=== PATIENT | male | born 1995 | race Caucasian/White ===

== ENCOUNTER 2019-08-22 13:04 | Emergency (ER) | payer OTHER ==
[2019-08-22] MEDS ORDERED: TETANUS & DIPHTHERIA TOX,ADULT 0.5 ML VIAL ONE (13:22)
--- NOTE | 2019-08-22 14:11 | ER ---
Nurse's Notes [facility] Name: Sanket Zuñiga Age: 24 yrs Sex: Male : 1995 Arrival Date: 08/22/2019 Time: 13:05 Bed 28 Private MD: Diagnosis: Puncture wound without foreign body of foot Presentation: 08/22 13:09 Presenting complaint: Patient states: i was barefoot trying to put a neighbors dog in tw2 and stepped on a daniel nail, i was barefoot. Transition of care: patient was not received from another setting of care. Onset of symptoms was August 22, 2019. Risk Assessment: Do you want to hurt yourself or someone else? Patient reports no desire to harm self or others. Initial Sepsis Screen: Does the patient meet any 2 criteria? No. Patient's initial sepsis screen is negative. Does the patient have a suspected source of infection? No. Patient's initial sepsis screen is negative. Care prior to arrival: None. 13:09 Method Of Arrival: Ambulatory tw2 13:09 Acuity: ROCAEL 4 tw2 Triage Assessment: 13:11 General: Appears in no apparent distress. Behavior is calm, cooperative, appropriate tw2 for age. Pain: Complains of pain in right foot. Musculoskeletal: Range of motion: intact in all extremities. Injury Description: Puncture sustained to right foot was sustained 1-2 hours ago. Historical: - Allergies: 13:10 No Known Allergies; tw2 - Home Meds: 13:10 None [Active]; tw2 - PMHx: 13:10 None; tw2 - PSHx: 13:10 None; tw2 - Immunization history:: Last tetanus immunization: > 10 years ago. - Social history:: Smoking status: . - Ebola Screening: : Patient denies travel to an Ebola-affected area in the 21 days before illness onset. Screenin:56 Abuse screen: Denies threats or abuse. Denies injuries from another. Nutritional mg2 screening: No deficits noted. Tuberculosis screening: No symptoms or risk factors identified. Fall Risk None identified. Assessment: 13:57 General: Appears in no apparent distress. comfortable, Behavior is calm, cooperative. mg2 Pain: Complains of pain in right foot. Neuro: Level of Consciousness is awake, alert, obeys commands, Oriented to person, place, time, situation. Cardiovascular: Capillary refill < 3 seconds Patient's skin is warm and dry. Respiratory: Airway is patent Respiratory effort is even, unlabored, Respiratory pattern is regular, symmetrical. GI: No signs and/or symptoms were reported involving the gastrointestinal system. : No signs and/or symptoms were reported regarding the genitourinary system. EENT: No signs and/or symptoms were reported regarding the EENT system. Derm: Wound noted right foot Wound is small punctured wound, no active bleeding. Musculoskeletal: Circulation, motion, and sensation intact. Capillary refill < 3 seconds. 14:10 Reassessment: Patient appears in no apparent distress at this time. Patient and/or mg2 family updated on plan of care and expected duration. Pain level reassessed. Vital Signs: 13:11 BP 125 / 75; Pulse 74; Resp 18; Temp 98(TE); Pulse Ox 100% on R/A; Weight 79.38 kg; tw2 Height 6 ft. 1 in. (185.42 cm); Pain 4/10; 14:00 BP 120 / 71; Pulse 71; Resp 18; Temp 98; Pulse Ox 100% on R/A; mg2 13:11 Body Mass Index 23.09 (79.38 kg, 185.42 cm) tw2 ED Course: 13:05 Patient arrived in ED. am2 13:10 Triage completed. tw2 13:10 Kadie Griffiths [facility]-C [facility]. kb 13:11 Yue Coronado MD is Attending Physician. kb 13:11 Arm band placed on. tw2 13:14 Monroe Shukla, RN is Primary Nurse. mg2 13:57 Patient has correct armband on for positive identification. mg2 13:59 No provider procedures requiring assistance completed. Patient did not have IV access mg2 during this emergency room visit. Administered Medications: 13:38 Drug: Tetanus-Diphtheria Toxoid Adult 0.5 ml {Artificial Insemination Technician: [employer]. Exp: mg2 02/09/2021. Lot #: [id number]. } Route: IM; Site: left deltoid; 14:00 Follow up: Response: No adverse reaction mg2 Outcome: 14:09 Discharge ordered by . kb 14:28 Discharged to home ambulatory, with family. mg2 14:28 Condition: stable 14:28 Discharge instructions given to patient, family, Instructed on discharge instructions, follow up and referral plans. Demonstrated understanding of instructions, follow-up care, wound care. 14:29 Patient left the ED. mg2 Signatures: Kadie Griffiths, COOKIE-C AFTER SCHOOL PROGRAM ASSISTANT-CkAnali Jones, RN RN tw2 Yvrose Boo am2 Monroe Shukla RN RN mg2
--- NOTE | 2019-08-22 14:11 | EDPHYS ---
Physician Documentation [facility] Name: Sanket Zuñiga Age: 24 yrs Sex: Male : 1995 Arrival Date: 08/22/2019 Time: 13:05 Bed 28 Private MD: ED Physician Yue Coronado HPI: 08/22 13:23 This 24 yrs old Male presents to ER via Ambulatory with complaints of stepped kb on nail, Foot Injury. 13:23 The patient presents with a puncture wound, from a nail. The complaints affect the kb right foot. Context: The problem was sustained at a neighbor's house, outdoors, resulted from the patient stepping on a nail, the patient can fully bear weight, the patient is able to ambulate. Onset: The symptoms/episode began/occurred just prior to arrival. Modifying factors: The symptoms are alleviated by nothing, the symptoms are aggravated by nothing. Associated signs and symptoms: The patient has no apparent associated signs or symptoms. Severity of symptoms: At their worst the symptoms were moderate, in the emergency department the symptoms are unchanged. The patient has not experienced similar symptoms in the past. The patient has not recently seen a physician. Historical: - Allergies: 13:10 No Known Allergies; tw2 - Home Meds: 13:10 None [Active]; tw2 - PMHx: 13:10 None; tw2 - PSHx: 13:10 None; tw2 - Immunization history:: Last tetanus immunization: > 10 years ago. - Social history:: Smoking status: . - Ebola Screening: : Patient denies travel to an Ebola-affected area in the 21 days before illness onset. ROS: 13:22 Constitutional: Negative for fever, chills, and weight loss, Cardiovascular: Negative kb for chest pain, palpitations, and edema, Respiratory: Negative for shortness of breath, cough, wheezing, and pleuritic chest pain, Abdomen/GI: Negative for abdominal pain, nausea, vomiting, diarrhea, and constipation, Back: Negative for injury and pain, MS/Extremity: Negative for injury and deformity, Neuro: Negative for headache, weakness, numbness, tingling, and seizure. 13:22 Skin: Positive for puncture, of the ball of right foot, stepped on nail. Exam: 13:21 Constitutional: This is a well developed, well nourished patient who is awake, alert, kb and in no acute distress. Head/Face: Normocephalic, atraumatic. Chest/axilla: Normal chest wall appearance and motion. Nontender with no deformity. No lesions are appreciated. Cardiovascular: Regular rate and rhythm with a normal S1 and S2. No gallops, murmurs, or rubs. Normal PMI, no JVD. No pulse deficits. Respiratory: Lungs have equal breath sounds bilaterally, clear to auscultation and percussion. No rales, rhonchi or wheezes noted. No increased work of breathing, no retractions or nasal flaring. Abdomen/GI: Soft, non-tender, with normal bowel sounds. No distension or tympany. No guarding or rebound. No evidence of tenderness throughout. Back: No spinal tenderness. No costovertebral tenderness. Full range of motion. MS/ Extremity: Pulses equal, no cyanosis. Neurovascular intact. Full, normal range of motion. Neuro: Awake and alert, GCS 15, oriented to person, place, time, and situation. Cranial nerves II-XII grossly intact. Motor strength 5/5 in all extremities. Sensory grossly intact. Cerebellar exam normal. Normal gait. 13:21 Skin: injury, puncture(s), that are superficial, of the ball of right foot. Vital Signs: 13:11 BP 125 / 75; Pulse 74; Resp 18; Temp 98(TE); Pulse Ox 100% on R/A; Weight 79.38 kg; tw2 Height 6 ft. 1 in. (185.42 cm); Pain 4/10; 14:00 BP 120 / 71; Pulse 71; Resp 18; Temp 98; Pulse Ox 100% on R/A; mg2 13:11 Body Mass Index 23.09 (79.38 kg, 185.42 cm) tw2 MDM: 13:12 Patient medically screened. kb 13:21 Data reviewed: vital signs, nurses notes. Data interpreted: Pulse oximetry: on room air kb is 100 %. Interpretation: normal. 14:08 Counseling: I had a detailed discussion with the patient and/or guardian regarding: the kb historical points, exam findings, and any diagnostic results supporting the discharge/admit diagnosis, radiology results, the need for outpatient follow up, a family practitioner, to return to the emergency department if symptoms worsen or persist or if there are any questions or concerns that arise at home. 08/22 13:21 Order name: Foot Right 3 View XRAY kb Administered Medications: 13:38 Drug: Tetanus-Diphtheria Toxoid Adult 0.5 ml {Mail Sorter: [employer]. Exp: mg2 02/09/2021. Lot #: [id number]. } Route: IM; Site: left deltoid; 14:00 Follow up: Response: No adverse reaction mg2 Disposition: 17:20 Co-signature as Attending Physician, Yue Coronado MD. il2 Disposition: 08/22/19 14:09 Discharged to Home. Impression: Puncture wound without foreign body of foot. - Condition is Stable. - Discharge Instructions: Puncture Wound, [id number]. - Medication Reconciliation Form, Thank You Letter, Antibiotic Education, Prescription Opioid Use form. - Follow up: Emergency Department; When: As needed; Reason: Worsening of condition. Follow up: Private Physician; When: 2 - 3 days; Reason: Recheck today's complaints, Continuance of care, Re-evaluation by your physician. Signatures: Dispatcher [employer] EDKadie Hays, SPAGHETTI MACHINE OPERATOR-C SPAGHETTI MACHINE OPERATOR-Ckb Anali Ontiveros, RN RN 2 Yue Coronado MD MD il2 Monroe Shukla RN RN mg2 Corrections: (The following items were deleted from the chart) 14:29 14:09 08/22/2019 14:09 Discharged to Home. Impression: Puncture wound without foreign mg2 body of foot. Condition is Stable. Forms are Medication Reconciliation Form, Thank You Letter, Antibiotic Education, Prescription Opioid Use. Follow up: Emergency Department; When: As needed; Reason: Worsening of condition. Follow up: Private Physician; When: 2 - 3 days; Reason: Recheck today's complaints, Continuance of care, Re-evaluation by your physician. kb
--- NOTE | 2019-08-22 14:26 | RAD REPORT ---
EXAM DESCRIPTION: RAD - Foot Right 3 View - 08/22/2019 1:56 pm CLINICAL HISTORY: Right foot pain status post injury FINDINGS: No fracture or dislocation is seen A radiopaque foreign body is not seen
[2019-08-22 14:36] VITALS: TEMP 98; O2SAT 100
[2019-08-22 14:38] VITALS: BP 120/71
== END 2019-08-22 14:29 | disposition home or self-care (01) ==
LOC: ER 13:04
DX: S91.331A Puncture wound without foreign body, right foot, initial encounter (principal); W45.0XXA Nail entering through skin, initial encounter; Y93.01 Activity, walking, marching and hiking; Y92.89 Other specified places as the place of occurrence of the external cause; Z23 Encounter for immunization
CPT/HCPCS: 90471; 90714; 99283